=== PATIENT | male | born 1990 | race Hispanic/Latino ===

== ENCOUNTER 2021-05-25 17:45 | Emergency (ER) | payer OTHER ==
[~2021-05-25] VITALS: Ht 165.1 cm; Wt 81.2 kg
[2021-05-25 17:47] VITALS: BP 126/78
[2021-05-25] MEDS ORDERED: TOLN133A TP (18:05)
== END 2021-05-25 18:30 | disposition home or self-care (01) ==
LOC: EDH 17:45
DX: B35.6 Tinea cruris (principal); J45.909 Unspecified asthma, uncomplicated
CPT/HCPCS: 99282